=== PATIENT | female | born 1995 | race Caucasian/White ===

== ENCOUNTER 2018-03-28 17:49 | Emergency (ER) | payer BC, OTHER ==
[2018-03-28] MEDS ORDERED: Metoclopramide HCl 10 MG/2 ML VIAL ONE (18:58)
[2018-03-28] MEDS ORDERED: Acetaminophen 500 MG TAB ONE (18:58)
[2018-03-28] MEDS ORDERED: diphenhydrAMINE 50 MG/ML VIAL ONE (18:58)
[2018-03-28 19:14] LABS: Bilirubin Negative (Negative); Blood, Urine Negative (Negative); Clarity CLEAR (Clear); Glucose, Urine (Dipstick) Negative (Negative); Leukocyte Negative (Negative); Nitrite Negative (Negative); Protein, Urine (Dipstick) Negative (Neg-Trace); Specific Gravity, Urine 1.013 (1.002-1.036); Urobilinogen 0.2 mg/dL (0.2-1.0); pH, Urine 7.5 (5.0-9.0)
[2018-03-28 19:17] LABS: Pregnancy Test - Urine (BHCG) Negative (Negative); Pregu Control Background? CLEAR/WHITE (CLR/WHITE); Pregu Control Bar Appear? YES (CONTROL BAR); Specific Gravity 1.013 (1.002-1.036)
[2018-03-28 19:30] LABS: #Eosinphils 0.2 thou/uL (0.0-0.7); #Lymphocytes 2.3 thou/uL (1.20-3.40); #Monocytes 0.5 thou/uL (0.11-0.59); #Neutrophils 2.1 thou/uL (1.40-6.50); %Basophils 0.9 % (0.0-1.0); %Eosinophils 3.1 % (0.0-10.0); %Lymphocytes 45.6 % (21.0-51.0); %Monocytes 9.1 % (0.0-10.0); %Neutrophils 41.3 % (42.0-75.0); Hemoglobin 14.4 g/dL (12.0-16.0); Mean Corpuscular HGB CONC 34.3 g/dL (32.0-36.0); Mean Corpuscular Hemoglobin 29.1 pg (27.0-31.0); Mean Corpuscular Volume 85.1 fL (78.0-98.0); Mean Platelet Volume 7.8 fL (7.4-10.4); Platelet Count 211 thou/uL (130-400); Red Blood Cell (RBC) Count 4.93 mill/uL (4.20-5.40)
[2018-03-28 19:53] LABS: ALT (SGPT) 24 U/L (8-55); AST (SGOT) 22 U/L (5-34); Albumin 4.5 g/dL (3.5-5.0); Alkaline Phosphatase 164 U/L (40-150); Anion Gap 10 mmol/L (10-20); BUN (Urea Nitrogen) 9 mg/dL (7.0-18.7); Bilirubin, Total 0.2 mg/dL (0.2-1.2); Calc. Creatinine Clearance 0 mL/min (70-130); Calcium 9.4 mg/dL (7.8-10.44); Carbon Dioxide 27 mmol/L (22-29); Chloride 106 mmol/L (98-107); Estimated GFR-MDRD Greater than 90; Globulin 3.2 g/dL (2.4-3.5); Glucose 93 mg/dL (70-105); Potassium 3.8 mmol/L (3.5-5.1); Protein, Total 7.7 g/dL (6.0-8.3); Sodium 139 mmol/L (136-145)
== END 2018-03-28 21:22 | disposition home or self-care (01) ==
LOC: ERS 17:49
DX: G43.909 Migraine, unspecified, not intractable, without status migrainosus (principal); G40.909 Epilepsy, unspecified, not intractable, without status epilepticus; F41.9 Anxiety disorder, unspecified; Z79.899 Other long term (current) drug therapy
CPT/HCPCS: 36415; 80053; 80177; 81003; 81025; 84146; 85025; 96365; 96366; 96375; J1200; J2765

== ENCOUNTER 2018-06-21 11:38 | Emergency (ER) | payer OTHER, BC ==
[2018-06-21] MEDS ORDERED: Ibuprofen 800 MG TAB ONE (13:20)
--- NOTE | 2018-06-21 14:06 | ULT ---
LEFT BREAST ULTRASOUND: Date: 06/21/18 INDICATION: History of left breast pain, rule out abscess. FINDINGS: Schuler scale ultrasound images submitted from the left breast 1 o'clock position 10.0 cm from the nippl e, left breast 2 o'clock position 10.0 cm from the nipple, left breast retroareolar, and left breast axillary tail region. No suspicious sonographic abnormality is seen within the regions of interest. IMPRESSION: No drainable fluid collection is seen within the left breast. POS: ELLIOT
== END 2018-06-21 13:40 | disposition home or self-care (01) ==
LOC: ERS 11:38
DX: N61.0 Mastitis without abscess (principal); G40.909 Epilepsy, unspecified, not intractable, without status epilepticus; F41.9 Anxiety disorder, unspecified; Z87.442 Personal history of urinary calculi; Z79.899 Other long term (current) drug therapy

== ENCOUNTER 2018-09-17 08:43 | Day surgery (SDC) | payer BC ==
[2018-09-17 09:06] VITALS: BMI 26.2
[2018-09-17] MEDS ORDERED: Lidocaine 2% PF 5 ML VIAL ONE (10:55)
[2018-09-17] MEDS ORDERED: Rocuronium Bromide 10 MG/ML (10ML VIAL) ONE (10:55)
[2018-09-17] MEDS ORDERED: Glycopyrrolate 0.2 MG/ML 5 ML SYRINGE ONE (10:55)
[2018-09-17] MEDS ORDERED: Dexamethasone 20 MG/5 ML VIAL ONE (10:55)
[2018-09-17] MEDS ORDERED: Succinylcholine Chloride 20 MG/ML 10 ml SYRINGE FS ONE (10:55)
[2018-09-17] MEDS ORDERED: PROPOFOL 200 MG/20 ML VIAL ONE (10:55)
[2018-09-17] MEDS ORDERED: diphenhydrAMINE 50 MG/ML VIAL ONE (10:55)
[2018-09-17] MEDS ORDERED: Ondansetron PF 4 MG/2 ML Vial ONE (10:55)
[2018-09-17] MEDS ORDERED: Scopolamine 1.5 mg/72 hour Patch ONE (11:27)
[2018-09-17] MEDS ORDERED: Ketorolac Tromethamine 30 MG/ML VIAL ONE (11:27)
[2018-09-17] MEDS ORDERED: Meropenem 2 GM in Admixture Fee 1 EACH IVPB SCH (11:45)
--- NOTE | 2018-09-17 11:53 | HP ---
HISTORY OF PRESENT ILLNESS: Jessica Arce is a 22-year-old female, 1, para 1, works at [employer], has 2 weeks ago experienced some lower abdominal pain that turned out to be her IUD migrated into her cervix. This was removed. Her pain improved. She now has had pain for 2 days. Right lower quadrant has suffered nausea without vomiting. Pain is worse with movement. She presented to the [facility], was evaluated and the CAT scan suggested possible early appendicitis. She follows Dr. Clemente Barron for endometriosis. She has had a past laparoscopy for that. The patient states she has had right ovarian cyst in the past. She is concerned about that. ALLERGIES: MORPHINE CAUSES RASH. SHE CAN TAKE TRAMADOL WITHOUT PROBLEMS AND HAS USED THAT IN THE PAST. TOBACCO: None. ALCOHOL: Rarely. MEDICATIONS: Keppra 750 twice a day; lorazepam 0.5 mg three times a day as needed, but rarely uses this; vitamins; Zoloft 50 mg a day. PAST SURGICAL HISTORY: Laparoscopy for endometriosis. PAST MEDICAL HISTORY: Seizure disorder, grand mal and partial seizures, and endometriosis and right ovarian cyst. REVIEW OF SYSTEMS: Noncontributory, 10-point. PHYSICAL EXAMINATION: HEAD, EARS, EYES, NOSE, AND THROAT: Unremarkable. LUNGS: Clear to auscultation. CARDIAC: Regular rate and rhythm without murmur or gallop. EXTREMITIES: Unremarkable. ASSESSMENT AND PLAN: Acute appendicitis. Laboratories are normal from [facility]. We will plan laparoscopic video appendectomy. Risks of infection, bleeding, and reoperation discussed. She consents. Job ID: [id number]
[2018-09-17] MEDS ORDERED: Meropenem 2 GM, Admixture Fee 1 EACH in Sodium Chloride 0.9% 100 ML IVPB SCH (12:15)
[2018-09-17] MEDS ORDERED: Midazolam HCl 2 mg/2 ml Vial ONE (14:10)
[2018-09-17] MEDS ORDERED: Bupivacaine HCl 0.5%/Epinephrine 1:200,000/PF 30 ml Vial ONE (15:24)
[2018-09-17] MEDS ORDERED: Fentanyl 100 MCG/2 ML VIAL ONE ×3 (15:36→17:08)
--- NOTE | 2018-09-18 00:03 | OP ---
DATE OF PROCEDURE: 09/17/2018 PREOPERATIVE DIAGNOSIS: Appendicitis by CAT scan emergency room. POSTOPERATIVE DIAGNOSES: Equivocal appendicitis, constipation, normal ovaries and uterus. PROCEDURE PERFORMED: Laparoscopic video appendectomy. ANESTHESIA: General, local 0.5% Marcaine with epinephrine 30 mL. Weldon placed at the beginning of the procedure and removed at the end. DESCRIPTION OF PROCEDURE: The patient was taken to the operating room, where under general anesthesia, abdomen was clipped of hair, prepared with ChloraPrep and draped in routine fashion. Local anesthetic of 0.5% Marcaine with epinephrine was infiltrated into the skin and subcutaneous tissue about each port site. Infraumbilical incision was made. Pneumoperitoneum to 15 mmHg was obtained with a Veress needle, replaced with a 5-port, video laparoscope inserted. Right lateral subcostal incision was made and a 5 port was placed. Suprapubic incision was made and a 12 port was placed. Appendix was perhaps early inflamed, but appeared almost normal. There might have been some slight inflammation. Mesoappendix was taken down with the LigaSure. The stump of the appendix divided with Endo-LIZABETH blue load stapler. Stapled cecal stump, hemostasis was gained with clips. Clips applied. Good hemostasis noted. The appendix was removed and submitted to Pathology. Irrigant and pneumoperitoneum evacuated after noting normal ovaries, uterus, and pelvis. No endometriosis noted. Suprapubic fascia was approximated with 0 Vicryl, GraNee needle. Skin incisions were approximated with a subdermal 4-0 Monocryl and [place] glue applied. Job ID: [id number]
== END 2018-09-17 17:55 | disposition home or self-care (01) ==
LOC: SDC/OP 08:43
PROVIDERS: ATTEND Specialist
PROC: 0DTJ4ZZ Resection of Appendix, Percutaneous Endoscopic Approach (ICD-10-PCS; principal; 2018-09-17)
DX: K35.80 Unspecified acute appendicitis (principal); K59.00 Constipation, unspecified; G40.909 Epilepsy, unspecified, not intractable, without status epilepticus; Z79.899 Other long term (current) drug therapy; Z88.5 Allergy status to narcotic agent; Z98.890 Other specified postprocedural states
CPT/HCPCS: 88304; J0131; J0670; J1100; J1200; J1885; J2001; J2185; J2250; J2405; J2704; J3010; J3490